=== PATIENT | male | born 2000 | race Caucasian/White ===

== ENCOUNTER 2024-06-22 21:55 | Emergency (ER) | payer SELFPAY ==
[~2024-06-22] VITALS: Ht 175.3 cm; Wt 107.0 kg
[2024-06-22 22:18] VITALS: O2SAT 96
[2024-06-22] MEDS: TETANUS, DIPHTHERIA, PERTUSSIS VAC/PF 0.5ML (>10YR OLD) IM ONE (23:49)
[2024-06-23] MEDS: LIDOCAINE HCL/PF 1% 10 MG/ML 5ML VIAL INFIL ONE (00:52)
[2024-06-23] MEDS: BACITRACIN ZINC OINT UDPKT TOP ONE (00:52)
[2024-06-23] MEDS ORDERED: IBUP-2029 MT (01:30)
[2024-06-23] MEDS ORDERED: AMOX1TAB16 MT (01:30)
[2024-06-23 01:50] VITALS: BP 112/66; PULSE 98; RESP 20; TEMP 98.6
== END 2024-06-23 01:50 | disposition home or self-care (01) ==
LOC: ER 21:55
DX: S01.511A Laceration without foreign body of lip, initial encounter (principal)
CPT/HCPCS: 90715; 40650; 90471; 99284; J3490; Z7610